=== PATIENT | female | born 1965 | race Caucasian/White ===

== ENCOUNTER 2021-01-10 07:43 | Outpatient (RCR) | payer OTHER, SELFPAY | END 2021-01-10 23:59 | LOC: IMMUN 07:43 | PROVIDERS: Visit Provider Family Medicine | DX: Z23 Encounter for immunization (principal) | CPT/HCPCS: 0011A; 0012A ==

== ENCOUNTER → 2023-09-02 | Outpatient (CLI) | payer OTHER, SELFPAY ==
--- NOTE | 2023-09-02 15:20 | NEURO ---
NCS and/or EMG Patient Report Ordering Doctor: Aaron Liao DATE OF SERVICE: 09/02/23 Rosalba presents for electrodiagnostic testing of the left upper limb. She reports numbness and tingling in the left hand. Electrodiagnostic findings: Left median motor nerve demonstrates normal distal latency, amplitude and conduction velocity. Left ulnar motor nerve demonstrates normal amplitude and distal latency with normal conduction across the elbow. Normal left ulnar and median F?waves. Normal left median sensory latency at the wrist. Normal left median palmar response. Normal left ulnar and radial sensory responses. Needle EMG testing was performed the left upper limb. All muscles tested showed no evidence of denervation with normal motor unit action potentials. Electrodiagnostic assessment: This is a normal electrodiagnostic study of the left upper limb. There is no electrodiagnostic evidence for peripheral neuropathy, including carpal tunnel or cubital tunnel syndrome. There is no electrodiagnostic evidence for cervical radiculopathy or brachial plexopathy. Multi Select Codes Neurology Neurology Interp Codes: 30793-65 Musc test done w/n test comp (interp) and 46326-58 Nrv cndj test 7-8 studies (interp)
== END | disposition home or self-care (01) ==
LOC: PSN 14:01
PROVIDERS: PCP Nurse Practitioner Family; Referring Provider Psychiatry & Neurology Neurology; Visit Provider Psychiatry & Neurology Neurology
DX: G56.32 Lesion of radial nerve, left upper limb (principal)
CPT/HCPCS: 95886; 95910